=== PATIENT | male | born 1970 | race Hispanic/Latino ===

== ENCOUNTER 2016-10-12 12:53 | Emergency (ER) | payer OTHER ==
[~2016-10-12] VITALS: Ht 182.9 cm; Wt 88.5 kg
[~2016-10-12 12:53] MED LIST: ALBUTEROL 3 ML3 ML INH; HUMULIN N100 U/ML SC; METFORMIN1000 MG PO; NEBULIZER MACHINE INH; PREDNISONE10 MG PO; VENTOLIN H0.09 MG/Ac INH
--- NOTE | 2016-10-12 15:04 | ED SKIN/ALLERGY COMPLAINT ---
History of Present Illness General Chief Complaint: General Adult Stated Complaint: BLISTERS ON L HAND AND L FOOT Source: patient Exam Limitations: no limitations Vital Signs & Intake/Output Vital Signs & Intake/Output Vital Signs Date Time Temp Pulse Resp B/P Pulse O2 O2 Flow FiO2 Ox Delivery Rate 10/12 1558 87 18 167/91 98 Room Air 10/12 1256 97.8 98 18 168/100 99 Room Air Allergies Coded Allergies: NO KNOWN ALLERGIES (03/02/15) Reconcile Medications Albuterol Sulfate (Ventolin Hfa) 90 MCG HFA.AER.AD 2 PUFF INH Q4H PRN ASTHMA (Reported) Albuterol Sulfate (Proventil) 2.5 MG/3 ML NEB 3 ML INH Q4P PRN SHORTNESS OF BREATH Insulin Human Isophane (NPH) (Humulin N) 100 U/ML BJORN 55 UNITS SC BID DIABETES (Reported) METFORMIN HCL (Metformin) 1,000 MG TABLET 1 TAB PO BID DIABETES (Reported) [NEBULIZER MACHINE] INH Q4HR PRN WHEEZING USE DIRECTED Prednisone 10 MG TABLET 0 TAB PO DAILY ASTHMA 5 TABS PO DAY 1 4 TABS DAY 2 3 TABS DAY 3 2 TABS DAY 4 1 TAB DAY 5 Triage Note: 46 Y/O MALE C/O BLISTERS TO L FINGERS AND L FOOT; STATES HE WOKE UP WITH BLISTERS LAST TUESDAY AND AREAS HAVE IMPROVED BUT PERSIST SINCE ONSET. PT STATES THEY TOLD HIM IT WAS FROSTBITE BUT HE DENIES BEING OUT IN THE COLD AND DOESN'T THINK THATS CORRECT. PT HAS MULTIPLE AREAS THAT APPEAR TO BE BLISTERS, SOME DARK IN COLOR. PT WEARING ORTHO BOOT AND USING CRUTCHES FOR SAME. Triage Nurses Notes Reviewed? yes HPI: Patient presents for evaluation of blood blisters of the left hand and left foot. Patient states they have been present for 1-2 weeks. He was evaluated at [facility] about 3 days ago and was treated for frostbite with dressings and antibiotics. Although the lesions of the feet seem to be doing better, the blood blisters of the left little and ring fingers are still present. The patient is concerned about why he is having this occur. He denies any prior episodes. He denies cold exposure, trauma or history of coagulopathy. Past History Travel History Traveled to [place] past 21 day No Medical History Any Pertinent Medical History? see below for history Neurological: NONE EENT: NONE Cardiovascular: NONE Respiratory: asthma Gastrointestinal: NONE Hepatic: NONE Renal: NONE Musculoskeletal: NONE Psychiatric: NONE Endocrine: diabetes Surgical History Surgical History: N Psychosocial History What is your primary language Citizen Of [place] Tobacco Use: Never used Family History Hx Contributory? No Review of Systems Review of Systems Constitutional: Reports: no symptoms. EENTM: Reports: no symptoms. Respiratory: Reports: no symptoms. Cardiovascular: Reports: no symptoms. GI: Reports: no symptoms. Genitourinary: Reports: no symptoms. Musculoskeletal: Reports: no symptoms. Skin: Reports: see HPI. Neurological/Psychological: Reports: no symptoms. Hematologic/Endocrine: Reports: no symptoms. Immunologic/Allergic: Reports: no symptoms. All Other Systems: Reviewed and Negative Physical Exam Physical Exam General Appearance: see below Comments: Gen.: Well-nourished, well-developed, no acute respiratory distress. Head: Normocephalic, atraumatic. Eyes: Normal inspection bilaterally Ears: Normal inspection bilaterally Nose: Normal inspection, nasal cannula in place Throat/mouth : Moist mucosa Neck: Supple, full range of motion, no goiter Heart: Regular rate and rhythm Lungs: Quiet respirations Back: Normal range of motion Extremities: Large bulla of the dorsal aspect of the left little finger, 1 small deflated bulla of the dorsal aspect of the left ring finger. No apparent cellulitis or abscess. Patient ranges fingers fully. Left foot: Scattered healing bullae with no signs of cellulitis or abscess. Neurologic: Cranial nerves grossly intact, speech is clear Skin: warm and dry Psychiatric: Calm, cooperative, no apparent delusions or hallucinations Progress Differential Diagnosis: frostbite, thermal burn, barbiturate overdose, ITP/TTP, coagulopathy Plan of Care: Orders Procedure Date/time Status PROTHROMBIN TIME 10/12 1504 Complete CBC WITHOUT DIFFERENTIAL 10/12 1504 Complete Laboratory Tests 10/12/16 1510: PT 12.5, INR 1.19 H, CBC w Diff NO MAN DIFF REQ, RBC 5.35, MCV 79.5 L, MCH 26.0 L, RDW 14.4, MPV 8.6, Gran % 65.7, Lymphocytes % 27.1, Monocytes % 5.5, Eosinophils % 1.4, Basophils % 0.3, Absolute Granulocytes 4.8, Absolute Lymphocytes 2.0, Absolute Monocytes 0.4, Absolute Eosinophils 0.1, Absolute Basophils 0, PUBS MCHC 32.7 L Comments: 10/12/2016 4:19:59 PM I have updated Luis on his lab tests. He presented to me the discharge instructions from his visit to [facility] and it appears he has been prescribed Naprosyn for discomfort. He also has instructions to follow up with a primary care physician in the [place] area. Departure Departure Disposition: HOME OR SELF CARE Condition: Stable Clinical Impression Primary Impression: Blood blister Referrals: UNKNOWN (PCP) Additional Instructions: Continue dressing changes to her left foot wounds. Do not rupture the blood blisters of your left hand. If the blisters break then apply a nonadherent dressings until the wounds heal. Follow-up with your primary care doctor in 1-2 weeks for reevaluation. Return if any concerns or sudden worsening. Departure Forms: Customer Survey General Discharge Information
[2016-10-12 15:17] LABS: ABSOLUTE BASOPHIL COUNT 0 /CUMM (0.0-0.2); ABSOLUTE EOSINOPHIL COUNT 0.1 /CUMM (0.0-0.7); ABSOLUTE GRANULOCYTE CT 4.8 /CUMM (1.4-6.5); ABSOLUTE MONOCYTE COUNT 0.4 /CUMM (0.10-0.60); BASOPHIL % 0.3 % (0.0-2.0); EOSINOPHIL % 1.4 % (0-5); GRANULOCYTE % 65.7 % (42.2-75.2); HEMATOCRIT 42.5 % (42-52); MEAN CORPUSCULAR HGB CONC 32.7 G/DL (33.0-37.0); MEAN CORPUSCULAR VOLUME 79.5 FL (80.0-94.0); MEAN PLATELET VOLUME 8.6 FL (7.4-10.4); PLATELET COUNT 183 /CUMM (130-400); RBC DISTRIBUTION WIDTH 14.4 % (11.5-14.5); RED BLOOD CELL CT 5.35 /CUMM (4.70-6.10); WHITE BLOOD CELL COUNT 7.3 /CUMM (4.8-10.8)
[2016-10-12 15:23] LABS: PT 12.5 SEC (9.4-12.5)
[2016-10-12 15:58] VITALS: BP 167/91
== END 2016-10-12 16:43 ==
LOC: ERH 12:53
PROVIDERS: Emergency Medicine
DX: S60.427A Blister (nonthermal) of left little finger, initial encounter (principal); S60.425A Blister (nonthermal) of left ring finger, initial encounter; X31.XXXA Exposure to excessive natural cold, initial encounter

== ENCOUNTER 2017-02-09 11:19 | Emergency (ER) | payer OTHER ==
[~2017-02-09] VITALS: Ht 182.9 cm; Wt 90.7 kg
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
[2017-02-09 12:03] LABS: ABSOLUTE BASOPHIL COUNT 0 /CUMM (0.0-0.2); ABSOLUTE EOSINOPHIL COUNT 0.6 /CUMM (0.0-0.7); ABSOLUTE GRANULOCYTE CT 3.2 /CUMM (1.4-6.5); ABSOLUTE LYMPH COUNT 1.7 /CUMM (1.2-3.4); ABSOLUTE MONOCYTE COUNT 0.4 /CUMM (0.10-0.60); BASOPHIL % 0.6 % (0.0-2.0); EOSINOPHIL % 10.4 % (0-5); GRANULOCYTE % 54.4 % (42.2-75.2); HEMATOCRIT 34.8 % (42-52); MEAN CORPUSCULAR HGB 26.5 PG (27.0-31.0); MEAN CORPUSCULAR HGB CONC 32.8 G/DL (33.0-37.0); MEAN CORPUSCULAR VOLUME 80.9 FL (80.0-94.0); MEAN PLATELET VOLUME 8.9 FL (7.4-10.4); PLATELET COUNT 163 /CUMM (130-400); RBC DISTRIBUTION WIDTH 14.7 % (11.5-14.5)
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
[2017-02-09 14:59] LABS: PT 12.1 SEC (9.4-12.5); PTT 28 SEC (25-37)
--- NOTE | 2017-02-09 15:23 | RADIOLOGY REPORT ---
EXAMINATION: XR CHEST CLINICAL INFORMATION: Chest pain. COMPARISON: Chest CT performed today TECHNIQUE: 2 views of the chest were obtained. FINDINGS: The lungs are well expanded. Minimal hazy opacity is seen at both lung bases, responding to the appearance on CT. No pleural effusion or pneumothorax. The cardiomediastinal silhouette is within normal limits. The nondisplaced right anterior rib fractures are better seen on the prior CT. IMPRESSION: Minimal basilar opacities, corresponding to the appearance on CT. No pneumothorax. The heart is normal in size.
[2017-02-09] MEDS ORDERED: IBUPROFEN800 M1 PO (15:29)
[2017-02-09 17:12] VITALS: BP 133/74
== END 2017-02-09 17:25 ==
LOC: ERH 11:19
PROVIDERS: Physician Assistant
DX: S22.41XA Multiple fractures of ribs, right side, initial encounter for closed fracture (principal); S22.20XA Unspecified fracture of sternum, initial encounter for closed fracture; F19.10 Other psychoactive substance abuse, uncomplicated; R10.9 Unspecified abdominal pain; S09.90XA Unspecified injury of head, initial encounter; E11.9 Type 2 diabetes mellitus without complications; Z79.84 Long term (current) use of oral hypoglycemic drugs
CPT/HCPCS: 74177; 80307; 81003; 93005; 93010; 96374; G0480